=== PATIENT | male | born 1995 | race Two or more races ===

== ENCOUNTER 2018-08-28 14:26 | Emergency (ER) | payer BC, OTHER ==
[~2018-08-28] VITALS: Ht 162.6 cm; Wt 56.7 kg
[2018-08-28] MEDS ORDERED: ceFAZolin 1GM/50ML 100 ML IV ONE (18:00)
[2018-08-28] MEDS ORDERED: LIDOCAINE W/ EPINEPHRINE 1% 20ML VIAL ID ONE ×2 (18:00)
[2018-08-28] MEDS ORDERED: NEOMYCIN-BACITRACIN-POLYM UNITDOSE PKG TOP OINT TOP ONE (18:00)
[2018-08-28] MEDS ORDERED: TETANUS-DIPTH-ACEL PERTUSSIS 0.5ML SYRG IM ONE (18:00)
[2018-08-28 18:20] VITALS: BP 129/64
== END 2018-08-28 19:38 | disposition home or self-care (01) ==
LOC: ER 14:26
DX: S01.81XA Laceration without foreign body of other part of head, initial encounter (principal); F17.210 Nicotine dependence, cigarettes, uncomplicated; W26.0XXA Contact with knife, initial encounter; Y93.89 Activity, other specified; Y99.8 Other external cause status; Y92.89 Other specified places as the place of occurrence of the external cause
CPT/HCPCS: 12013; 90471; 90715; 96365; 99283; J0690